=== PATIENT | male | born 1975 | race Caucasian/White ===

== ENCOUNTER 2022-12-16 09:07 | Emergency (ER) | payer OTHER ==
[~2022-12-16] VITALS: Ht 175.3 cm; Wt 93.0 kg
[~2022-12-16 09:07] MED LIST: ATOR20 PO; DOXE10 PO; FAMO40; FLUT1DIS2; IMODIUM A-D2 M1; LAMO25 PO; METO50ER PO; PANT40; Prinivil10 MG PO; QUET100 PO; SERT100 PO; TIZA4 PO; TRAZ50 PO
[2022-12-16] MEDS ORDERED: TRAZ50 (09:52)
[2022-12-16] MEDS ORDERED: METO50ER (09:52)
[2022-12-16] MEDS ORDERED: SERT100 (09:52)
[2022-12-16] MEDS ORDERED: ALPR.5 (09:52)
[2022-12-16] MEDS ORDERED: FLONASE ALLERG9.9 M2 (09:54)
[2022-12-16] MEDS ORDERED: TIZA4 (09:54)
[2022-12-16] MEDS ORDERED: QUET25 (09:54)
[2022-12-16] MEDS ORDERED: QUET100 (09:54)
[2022-12-16] MEDS ORDERED: DICLOFENAC SOD100 GM (09:55)
[2022-12-16] MEDS ORDERED: PANT40 (09:55)
[2022-12-16] MEDS ORDERED: FAMO40 (09:55)
[2022-12-16] MEDS ORDERED: Prinivil10 MG (09:55)
== END 2022-12-16 10:00 | disposition home or self-care (01) ==
LOC: ER 09:07
DX: M75.21 Bicipital tendinitis, right shoulder (principal); M25.511 Pain in right shoulder; M25.512 Pain in left shoulder; K21.9 Gastro-esophageal reflux disease without esophagitis; E78.5 Hyperlipidemia, unspecified; R00.0 Tachycardia, unspecified; I10 Essential (primary) hypertension; Z79.899 Other long term (current) drug therapy
CPT/HCPCS: 99283